=== PATIENT | female | born 1985 | race Caucasian/White ===

== ENCOUNTER → 2016-05-10 | Day surgery (SDC) | payer OTHER ==
[~2016-05-10] VITALS: Ht 165.1 cm; Wt 197.0 kg
[~2016-05-10] MED LIST: MOTRIN 800800 MG/TAB PO; SYNTHROID0.075 MG/T PO; ZESTRIL 20MG TA20 MG PO
[2016-05-10 06:36] VITALS: BP 146/99; PULSE 135; TEMP 97
== END ==
LOC: SDCO 05:17
DX: N92.1 Excessive and frequent menstruation with irregular cycle (principal); Z53.09 Procedure and treatment not carried out because of other contraindication; R73.9 Hyperglycemia, unspecified; R73.03 Prediabetes; E03.9 Hypothyroidism, unspecified; E66.9 Obesity, unspecified; I10 Essential (primary) hypertension
CPT/HCPCS: J7120

== ENCOUNTER → 2016-05-17 | Outpatient (CLI) | payer OTHER | LOC: COL.RAD 10:36 | DX: Z01.811 Encounter for preprocedural respiratory examination (principal) ==

== ENCOUNTER 2016-06-22 08:21 | Day surgery (SDC) | payer OTHER ==
[~2016-06-22] VITALS: Ht 167.6 cm; Wt 196.3 kg
[~2016-06-22 08:21] MED LIST changes: -MOTRIN 800800 MG/TAB PO
[2016-06-22 09:22] VITALS: BP 128/69; PULSE 133; TEMP 97.8
[2016-06-22] MEDS ORDERED: MOTRIN 800800 MG/TAB PO (10:43)
[2016-06-22 12:06] VITALS: BP 97/68; PULSE 81
[2016-06-22 12:21] VITALS: BP 109/67; PULSE 78
[2016-06-22 12:30] VITALS: TEMP 98.6
[2016-06-22 12:37] VITALS: BP 112/75; PULSE 74
[2016-06-22 12:52] VITALS: BP 114/62; PULSE 80
== END 2016-06-22 13:09 | disposition home or self-care (01) ==
LOC: SDCO 08:21
DX: N92.0 Excessive and frequent menstruation with regular cycle (principal); E66.01 Morbid (severe) obesity due to excess calories; S31.41XA Laceration without foreign body of vagina and vulva, initial encounter
CPT/HCPCS: J1885; J2405; J2704; J3010; J7120